=== PATIENT | female | born 1970 | race Caucasian/White ===

== ENCOUNTER 2019-10-20 20:33 | Emergency (ER) | payer OTHER ==
[~2019-10-20] VITALS: Ht 172.7 cm; Wt 90.7 kg
[~2019-10-20 20:33] MED LIST: CEPH500 PO; Esgic Tablet1 EACH PO; HYDACE5 PO; OXYACE5T PO; TRAM50 PO
== END 2019-10-20 23:09 | disposition home or self-care (01) ==
LOC: ER 20:33
DX: I87.8 Other specified disorders of veins (principal); G89.29 Other chronic pain; M25.562 Pain in left knee; F17.210 Nicotine dependence, cigarettes, uncomplicated
CPT/HCPCS: 93971; 99283-25

== ENCOUNTER 2022-01-09 06:42 | Emergency (ER) | payer OTHER ==
[~2022-01-09] VITALS: Ht 175.3 cm; Wt 90.7 kg
== END 2022-01-09 08:40 | disposition home or self-care (01) ==
LOC: ER 06:42
DX: G43.909 Migraine, unspecified, not intractable, without status migrainosus (principal); F17.210 Nicotine dependence, cigarettes, uncomplicated
CPT/HCPCS: A9270; J0780; J1885